=== PATIENT | male | born 1965 | race Caucasian/White ===

== ENCOUNTER 2021-07-14 08:27 | Emergency (ER) | payer BC, SELFPAY ==
[2021-07-14 08:49] VITALS: BP 162/108; PULSE 70; RESP 14; TEMP 36.9; O2SAT 98; BMI 35.5
[2021-07-14 09:05] VITALS: BP 146/97; PULSE 74; RESP 18; O2SAT 97
--- NOTE | 2021-07-14 09:05 | ED_ITS ---
HPI - Wound/Laceration General: Chief Complaint: Wound/Laceration Stated Complaint: Stepped nails says he needs a tetanus shot Time Seen by Provider: 07/14/21 08:57 Source: patient Mode of arrival: ambulatory Limitations: no limitations History of Present Illness: Patient is a nice 56-year-old male who presents to ED today for evaluation of bilateral plantar puncture wounds. Patient tells me yesterday he accidentally stepped on a nail with his right foot and then jumped/hopped and stepped on a board that had two nails with his left foot. He states his left foot feels swollen and sore. No redness/warmth/streaking. No fevers. Patient is not a diabetic or immunocompromised. He states he does need a tetanus. Onset (ago): day(s) (yesterday) Extremity Location: Bilateral: foot Place: home Patient tetanus UTD: No Context: accidental Associated symptoms: Reports no associated symptoms; Denies chills or fever(s) Review of Systems Const: Denies: fever(s), chills, body aches, fatigue or malaise Card: Denies: chest pain Resp: Denies: dyspnea GI: Denies: abdominal pain Musc: Reports: extremity pain and extremity swelling; Denies: neck pain, back pain, joint pain, joint swelling, joint redness or joint warmth Neuro: Denies: headache(s), numbness in extremities, weakness in extremities or sensory changes [facility] ED PFSH: Family History Sister Anesthesia complication Grandfather CAD (coronary artery disease) Mother Cancer Father Clotting disorder Dementia Brother Diabetes Hypertension Social History Smoking and tobacco status: never smoked Second hand smoke exposure: No Alcohol intake: never Physical Exam Const: COMMON NORMALS: no acute distress, patient oriented x3, no limitations, alert and well nourished GENERAL APPEARANCE: cooperative ORIENTATION/CONSCIOUSNESS: Yes awake, Yes oriented to person, Yes oriented to place and Yes oriented to time Extremity: COMMON NORMALS: full ROM, capillary refill normal, no joint enlargement and no calf tenderness GENERAL: Yes normal exam except as noted RIGHT LOWER EXTREMITY: Yes foot & digits (small plantar wound to mid/fore foot without redness, swelling, drainage) Right foot and digits: Yes neurovascular exam (normal) LEFT LOWER EXTREMITY: Yes foot & digits (two plantar wounds present; one to great toe, other to mid/forefoot) Left foot and digits: Yes inspection (he does have some generalized swelling w/o redness, drainage, streaking) and Yes neurovascular exam (normal) Neuro: COMMON NORMALS: patient oriented x3, moves all extremities, no focal motor deficits and no sensory deficits noted SENSORIUM/ORIENTATION: Yes alert, Yes oriented to person, Yes oriented to place and Yes oriented to time Course Vital Signs: Vital signs: Vital Signs Temperature 98.4 F 07/14/21 08:49 Pulse Rate 72 07/14/21 09:11 Respiratory Rate 18 07/14/21 09:11 Blood Pressure 146/97 07/14/21 09:11 Pulse Oximetry 97 07/14/21 09:11 MDM - Wound/Laceration Medical Decision Making Patient here with bilateral plantar puncture wounds. None of the wounds at this time look acutely infected although he does have some swelling and soreness to the left plantar wounds. He is not immunocompromised or diabetic however I think coverage with antibiotic therapy is appropriate. I will place him on cephalexin and ciprofloxacin which will cover for staph/pseudomonas. I would like him to follow-up with Dr. Browning this week for re-evaluation. Discussed XR imaging however patient declines. Strict return to ED precautions given. Discharge Plan Discharge Patient Disposition: Home Clinical Impression: Puncture wound of plantar aspect of left foot Qualifiers: Encounter type: initial encounter Qualified Code(s): S91.332A - Puncture wound without foreign body, left foot, initial encounter Puncture wound of plantar aspect of right foot Qualifiers: Encounter type: initial encounter Qualified Code(s): S91.331A - Puncture wound without foreign body, right foot, initial encounter Condition: Stable Prescriptions: New Cipro 500 mg tablet 500 mg PO Q12H Qty: 14 0RF cephalexin 500 mg capsule 500 mg PO Q6H 7 Days Qty: 28 0RF No Action lisinopril 30 mg tablet 30 mg PO DAILY 0RF omeprazole 40 mg capsule,delayed release(DR/EC) 40 mg PO DAILY 0RF aspirin [Adult Aspirin Regimen] 81 mg tablet,delayed release (DR/EC) 81 mg PO DAILY 0RF Discharge Orders: Discharge ED (Routine); Ordered 07/14/21 Ordered By: Claudia Champagne Referrals: Robert Browning DPM [Physician] - Patient Instructions: Puncture Wound (DC), Puncture Wound in the Foot (ED) Activity Restrictions/Additional Instructions: Keep wounds clean with warm soap and water several times daily. Monitor for signs of infection such as redness, swelling, drainage, increased pain, red streaking up your leg. They seek medical reevaluation if these occur. As we discussed I would like you to follow-up with Dr. Browning our seasonal sales associate this week for re-evaluation. Coding Level of Care Code ED [place] Tier for Shmuel Henley
[2021-07-14] MEDS: tetanus-diphtheria tox (adult) 0.5 mL SDV IM (09:07)
[2021-07-14 09:11] VITALS: BP 146/97; PULSE 72; RESP 18; O2SAT 97
--- NOTE | 2021-07-14 09:40 | DCPLANNER ---
Addendum entered by Arianne Medina 07/23/21 14:35: Patient had a follow up appointment scheduled for 07.16.21 with ortho - patient did attend appointment. Original Note: regional safety manager had message to schedule a follow up appointment for patient with ortho. regional safety manager sent patients information to the front office staff at ortho. Patients information will be printed and reviewed. Clinic will call patient with appointment information.
== END 2021-07-14 09:15 | disposition home or self-care (01) ==
PROVIDERS: Emergency Provider Physician Assistant
DX: S91.331A Puncture wound without foreign body, right foot, initial encounter (principal); S91.332A Puncture wound without foreign body, left foot, initial encounter; W45.0XXA Nail entering through skin, initial encounter; Z23 Encounter for immunization
CPT/HCPCS: 90471; 90714; 99283

== ENCOUNTER → 2021-07-16 08:07 | Outpatient (BNVA) | payer BC, SELFPAY | PROVIDERS: Referring Provider Physician Assistant; Visit Provider Podiatrist Foot & Ankle Surgery | DX: S91.332A Puncture wound without foreign body, left foot, initial encounter (principal); S91.331A Puncture wound without foreign body, right foot, initial encounter; X58.XXXA Exposure to other specified factors, initial encounter | CPT/HCPCS: 73630 ==